=== PATIENT | female | born 1965 | race African-American/Black ===

== ENCOUNTER → 2016-10-09 | Outpatient (CLI) | payer OTHER ==
--- NOTE | 2016-10-09 16:15 | MA ---
Screening Digital Mammogram With iCAD Analysis Reason for Examination: Routine screening. The patient has had left breast cancer treated with mastec dwayne. Breast parenchymal density: Type B; Scattered fibroglandular densities. Technique: Four views of the right breast are obtained including CC and oblique lateral Luisa (impla nt displaced) and non-Luisa (implant not displaced) views. Images were reviewed using the [employer] [place] [employer] aided detection system. Comparison: October 2015, September 2014, May 2011, October 2010, March 2010, January 2010, February 19January 2007. Findings: Breast implants are in place bilaterally. iCAD is reviewed. No suspicious areas are identif ied. There has been no significant change in the appearance of the right breast. Breast implants dimi drea the sensitivity of mammography. Impression: Negative mammogram. BI-RADS 1. Recommendation: Routine screening is recommended in one year as long as physical examination is negat abhay. [facility] will send a result letter to the patient. Negative mammography should not preclude additional workup of a clinically suspicious finding. The patient's information is entered into a reminder system with a target due date for her next mammo gram.
== END ==
LOC: FIMAGING 15:28
DX: Z12.31 Encounter for screening mammogram for malignant neoplasm of breast (principal); Z85.3 Personal history of malignant neoplasm of breast; Z90.12 Acquired absence of left breast and nipple
CPT/HCPCS: G0202-52

== ENCOUNTER → 2017-10-10 | Outpatient (CLI) | payer OTHER | LOC: FIMAGING 07:38 | PROVIDERS: ATTEND Internal Medicine Hematology & Oncology | DX: Z12.31 Encounter for screening mammogram for malignant neoplasm of breast (principal); Z85.3 Personal history of malignant neoplasm of breast; Z90.12 Acquired absence of left breast and nipple ==

== ENCOUNTER 2018-05-21 15:48 | Emergency (ER) | payer OTHER ==
[2018-05-21 15:58] VITALS: BP 126/92
--- NOTE | 2018-05-21 16:46 | EDPHY ---
H & P Stated Complaint: sinus pressure/sneezing/ ear popping Time Seen by Provider: 05/21/18 16:46 - Personal History LMP (Females 10-55): Hysterectomy Current Tetanus Diphtheria and Acellular Pertussis (TDAP): Yes - Medical/Surgical History Hx Asthma: No Hx Chronic Respiratory Disease: No Hx Diabetes: No Hx Cardiac Disease: No Hx Renal Disease: No Hx Cirrhosis: No Hx Alcoholism: No Hx HIV/AIDS: No Hx Splenectomy or Spleen Trauma: No Other PMH: hysterectomy, HX breast CA - Social History Smoking Status: Never smoked Constitutional: Initial Vital Signs Temperature (C) 37.6 C 05/21/18 15:53 Heart Rate 96 05/21/18 15:53 Respiratory Rate 18 05/21/18 15:53 Blood Pressure 126/92 H 05/21/18 15:53 O2 Sat (%) 94 05/21/18 15:53 O2 Delivery Mode Room Air Allergies/Adverse Reactions: anesthesia Allergy (Uncoded 05/21/18 15:51) dermabond Allergy (Uncoded 05/21/18 15:51) seasonal Allergy (Uncoded 05/21/18 15:51) Home Medications: Medication Instructions Recorded Tamoxifen Citrate 10/21/15 Flonase Allergy Relief 05/21/18 ZYRTEC 05/21/18 Departure - Departure Referrals: ANDREW BRADY MD [Primary Care Provider] - As per Instructions
--- NOTE | 2018-05-21 17:14 | EDPHY ---
H & P Stated Complaint: sinus pressure/sneezing/ ear popping Time Seen by Provider: 05/21/18 16:46 - Personal History LMP (Females 10-55): Hysterectomy Current Tetanus Diphtheria and Acellular Pertussis (TDAP): Yes - Medical/Surgical History Hx Asthma: No Hx Chronic Respiratory Disease: No Hx Diabetes: No Hx Cardiac Disease: No Hx Renal Disease: No Hx Cirrhosis: No Hx Alcoholism: No Hx HIV/AIDS: No Hx Splenectomy or Spleen Trauma: No Other PMH: hysterectomy, HX breast CA - Social History Smoking Status: Never smoked Constitutional: Initial Vital Signs Temperature (C) 37.6 C 05/21/18 15:53 Heart Rate 96 05/21/18 15:53 Respiratory Rate 18 05/21/18 15:53 Blood Pressure 126/92 H 05/21/18 15:53 O2 Sat (%) 94 05/21/18 15:53 O2 Delivery Mode Room Air Allergies/Adverse Reactions: anesthesia Allergy (Uncoded 05/21/18 15:51) dermabond Allergy (Uncoded 05/21/18 15:51) seasonal Allergy (Uncoded 05/21/18 15:51) Home Medications: Medication Instructions Recorded Tamoxifen Citrate 10/21/15 Flonase Allergy Relief 05/21/18 ZYRTEC 05/21/18 Medical Decision Making ED Course/Re-evaluation: CHIEF COMPLAINT: Sinus pressure, plugged ears, postnasal drip HISTORY OF PRESENT ILLNESS: 53-year-old healthy female who is about to fly to the [facility] in 2 days. Over the last day or 2 she developed sinus pressure, plugged ears, postnasal drip. She is concerned because she is flying and her PCP was unable to fit her in before she leaves [facility]. She has had recurrent sinusitis and feels like she has it again. It is usually amenable to treatment. REVIEW OF SYSTEMS: A comprehensive 10 system review of systems is otherwise negative aside from elements mentioned in the history of present illness and medical decision making. PHYSICAL EXAM: HR, BP, O2 Sat, RR. Temp noted General Appearance: Alert, well hydrated, appropriate, and non-toxic appearing. Head: Pain to palpation over the maxillary sinuses bilaterally, Atraumatic without scalp tenderness or obvious injury Eyes: Pupils equal, round, reactive to light and accommodation, EOMI, no trauma, no injection. Ears: Bulging of the tympanic membranes left greater than right without evidence of erythema. Clear bilaterally, no perforation Nose: Atraumatic, no rhinorrhea, clear. Throat: There is no erythema or exudates, no lesions, normal tonsils, mucus membranes moist. Neck: Supple, 2+ carotid upstroke, nontender, no lymphadenopathy. Respiratory: No retractions, no distress, no wheezes, and no accessory muscle use. Lungs are clear to auscultation bilaterally. Cardiovascular: Regular rate and rhythm, no murmurs, rubs, or gallops. Bilateral carotid, radial, dorsalis pedis, and posterior tibial pulses intact. Good capillary refill all extremities. Gastrointestinal: Abdomen is soft, nontender, non-distended, no masses, no rebound, no guarding, no peritoneal signs. Musculoskeletal: Normal active ROM of all extremities, atraumatic. Neurological: Alert, appropriate, and interactive. The patient has normal DTRs and non-focal cranial nerves, motor, sensory, and cerebellar exam. Skin: No rashes, good turgor, no nodules on palpation. Past medical history: Patient denies except for recurrent sinusitis Past surgical history: Noncontributory Family history: Noncontributory Social history: , employed, does not abuse tobacco drugs or alcohol DIFFERENTIAL DIAGNOSIS: The differential diagnosis for the patient's sinus pressure included but was not limited to [pneumonia, sinusitis, viral syndrome, meningitis, otitis media, otitis externa.] MEDICAL DECISION MAKING: This patient has maxillary sinusitis. I will start her on Mucinex, Flonase, Z-Nilesh. She will flying a couple of days and I have warned her to maybe use some Afrin the day that she does fly. Departure - Departure Disposition: Home, Routine, Self-Care Clinical Impression: Acute sinusitis Qualifiers: Sinusitis location: maxillary Recurrence: recurrent Qualified Code(s): J01.01 - Acute recurrent maxillary sinusitis Condition: Good Instructions: Sinusitis (ED) Additional Instructions: Use Flonase 2 puffs in each nostril twice daily until you get to the [facility]. Use Mucinex 1 pill in the morning 1 pill in the evening with large quantities of water since that is how it works. Take all of your antibiotic. Return if worse. Referrals: ANDREW BRADY MD [Primary Care Provider] - As per Instructions
== END 2018-05-21 17:20 | disposition home or self-care (01) ==
DX: J01.01 Acute recurrent maxillary sinusitis (principal)